=== PATIENT | male | born 1950 ===

== ENCOUNTER → 2022-11-15 11:09 | Outpatient (BNVA) | payer MEDICARE, BC, SELFPAY | PROVIDERS: PCP Family Medicine; Referring Provider Family Medicine Sports Medicine; Visit Provider Specialist | DX: C61 Malignant neoplasm of prostate (principal); Z86.73 Personal history of transient ischemic attack (TIA), and cerebral infarction without residual deficits; T83.84XA Pain due to genitourinary prosthetic devices, implants and grafts, initial encounter; K59.09 Other constipation; Z79.891 Long term (current) use of opiate analgesic; Y73.2 Prosthetic and other implants, materials and accessory gastroenterology and urology devices associated with adverse incidents | CPT/HCPCS: 99205 ==